=== PATIENT | female | born 1970 | race Caucasian/White ===

== ENCOUNTER 2019-08-23 17:28 | Inpatient (IN) ==
[2019-08-23] MEDS ORDERED: PIPERACILLIN/TAZOBACTAM 4.5 GM/120 ML BAG IV ONE (18:18)
[2019-08-23] MEDS ORDERED: PIPERACILL/TAZOBAC CONSULT ACTIVE PRN ×2 (18:18→21:40)
[2019-08-23] MEDS ORDERED: ONDANSETRON INJ 2 MG/ML 2 ML VIAL IV STA (18:20)
[2019-08-23] MEDS ORDERED: MoRPHine SULFATE 4 MG/ML 1 ML CARP\\VIAL IV STA (18:20)
[2019-08-23] MEDS ORDERED: SODIUM CHLORIDE 0.9% 1000ML 1,000 ML IV SCH (18:30)
--- NOTE | 2019-08-23 18:35 | Emergency Department Note ---
Entered by Kaylah Naranjo acting as a scribe for History of Present Illness General Chief complaint: Skin Problem Stated complaint: BOIL ON BUTT Time Seen by Provider: 08/23/19 17:50 Source: patient History of Present Illness Onset (ago): week(s) (several) Location: genitals (right labia) Radiation: other (towards rectum) Severity: similar to prior episodes Pain Consistency: + other (worsening) Maximum Pain Intensity: 9 Quality: + other (abscess) Associated symptoms: + other (positive itchiness; positive pain); no fever/chills and no nausea/vomiting The patient is a 49 year old female who presents to the Emergency Room with complaints of a worsening right labia abscess that began several weeks prior to arrival. The patient states that this radiates several centimeters inferiorly towards her rectum. The patient states that this has been itchy and painful. The patient states that this is similar to a prior episode. She denies nausea, vomiting, and fevers. The patient states that she has a history of diabetes and hypertension. Home Medications Home Medications Medication Instructions Recorded Confirmed Type atorvastatin 10 mg PO HS 08/23/19 08/23/19 History dulaglutide [Trulicity] 0.75 mg SUBCUT WK 08/23/19 08/23/19 History gabapentin 300 mg PO BID 08/23/19 08/23/19 History glipizide 10 mg PO DAILY 08/23/19 08/23/19 History insulin aspart U-100 [Novolog 8 unit SUBCUT TID 08/23/19 08/23/19 History U-100 Insulin aspart] insulin glargine [Basaglar KwikPen 24 unit SUBCUT HS 08/23/19 08/23/19 History U-100 Insulin] losartan 50 mg PO BID 08/23/19 08/23/19 History metformin 1,000 mg PO BID 08/23/19 08/23/19 History omeprazole 20 mg PO BID 08/23/19 08/23/19 History Allergies Allergy/AdvReac Type Severity Reaction Status Date / Time Iodinated Contrast Media Allergy Unknown . Verified 08/23/19 18:15 Past Med/Surg History Medical History Callus (Acute) Diabetes mellitus with diabetic polyneuropathy (Acute) Hallux rigidus, left foot (Acute) Hallux rigidus, right foot (Acute) Social History Preferred Language: Belarusian Feels Safe at Home: Yes Smoking Status: Current every day smoker Review of Systems See HPI for pertinent positives & negatives. and A total of 10 systems reviewed and were otherwise negative Physical Exam Vital Signs Vital Signs - 24 hr 08/23/19 17:32 08/23/19 19:28 Temperature 37.0 C Temperature Source Oral Pulse Rate 107 H Pulse Rate [Apical] 90 Pulse Rhythm Regular Pulse Rhythm [Apical] Regular Pulse Strength Normal Respiratory Rate 20 20 Respiratory Effort / Characteristics Non-Labored Non-Labored Spontaneous Respiratory Depth Normal Normal Respiratory Pattern Regular Regular Blood Pressure 164/111 H Blood Pressure [Right Arm] 154/88 H Blood Pressure Mean 128 Blood Pressure Mean [Right Arm] 110 Blood Pressure Position Sitting Blood Pressure Position [Right Arm] Lying Pulse Oximetry 98 96 Oxygen Delivery Method Room Air Room Air Sepsis Recent Fever Within 48 Hours No Sepsis Action Taken by Nursing No Action Required GENERAL: The patient is awake and alert. She is very anxious appearing and appears to be uncomfortable. EYES: The conjunctivae are clear. The pupils are round and reactive. EARS, NOSE, MOUTH AND THROAT: The nose is without any evidence of any deformity. Mucous membranes are moist. Tongue is midline. NECK: The neck is nontender and supple. RESPIRATORY: Normal respiratory effort is noted there is no evidence of wheezing rhonchi or rales CARDIOVASCULAR: Tachycardic rate with regular rhythm. There is no definite murmur. GASTROINTESTINAL: The abdomen is soft. Abdomen is nontender. MUSCULOSKELETAL/EXTREMITIES: There is no evidence of gross deformity full range of motion is noted in the hips and shoulders. SKIN: There is severe swelling on the right outer labia. This tracks down inferiorly into the lower part of the buttocks. It is very indurated. There was an open area with a small amount of drainage. There is significant tenderness in this area. NEUROLOGIC: Patient is awake alert and oriented x3. Course Course 181: Past medical records reviewed. The patient was evaluated in room A10. A complete history and physical exam was performed. 2007: I checked on and updated the patient. 2018: I discussed the case with Dr. [facility] Hospitalist who accepts the patient for further evaluation. Administered Medications Discontinued Medications Sodium Chloride (Nss 1000ml) 1,000 mls @ 999 mls/hr IV .Q1H1M LISANDRA Stop: 08/23/19 19:30 Last Infusion: 08/23/19 19:58 Dose: 0 mls/hr Documented by: [id number] Admin: 08/23/19 18:51 Dose: 999 mls/hr Documented by: [id number] Piperacillin Sod/Tazobactam Sod (Zosyn) 4.5 gm in 120 mls @ 240 mls/hr IV NOW ONE Stop: 08/23/19 18:47 Last Infusion: 08/23/19 19:58 Dose: 0 mls/hr Documented by: [id number] Admin: 08/23/19 18:52 Dose: 240 mls/hr Documented by: [id number] Morphine Sulfate (Morphine Sulfate) 4 mg IV NOW STA Stop: 08/23/19 18:21 Last Admin: 08/23/19 18:51 Dose: 4 mg Documented by: [id number] Ondansetron HCl (Zofran) 4 mg IV NOW STA Stop: 08/23/19 18:21 Last Admin: 08/23/19 18:51 Dose: 4 mg Documented by: [id number] Medical Decision Making Differential Diagnosis Differential diagnosis includes etiologies such as cellulitis, abscess, MRSA infection, DVT, necrotizing fasciitis, dermatitis, drug eruption, as well as others were entertained. Medical Records Attestation: I reviewed the patient's medical records. Home Medications Current Medication List: was personally reviewed by me Laboratory Data Attestation: I reviewed the patient's lab results. Result diagrams: 08/23/19 18:45 08/23/19 18:45 Lab Results 08/23/19 08/23/19 08/23/19 Range/Units 18:45 18:45 18:45 WBC 7.15 (4.8-10.8) K/uL RBC 4.31 (4.2-5.4) M/uL Hgb 8.6 L (12.0-16.0) g/dL Hct 30.1 L (37-47) % MCV 69.8 L (80-100) fL MCH 20.0 L (25-34) pg MCHC 28.6 L (32-36) g/dL RDW Std Deviation 46.5 H (36.4-46.3) fL RDW Coeff of King 18.5 H (11.5-14.5) % Plt Count 412 H (130-400) K/uL MPV 8.9 (7.4-10.4) fL Immature Gran % (Auto) 0.3 % Neut % (Auto) 57.6 % Lymph % (Auto) 29.5 % [place] % (Auto) 9.1 % Eos % (Auto) 3.1 % Baso % (Auto) 0.4 % Immature Gran # (Auto) 0.02 (0.00-0.02) K/uL Neut # (Auto) 4.12 (1.4-6.5) K/uL Lymph # (Auto) 2.11 (1.2-3.4) K/uL [place] # (Auto) 0.65 H (0.11-0.59) K/uL Eos # (Auto) 0.22 (0-0.5) K/uL Baso # (Auto) 0.03 (0-0.2) K/uL Polychromasia 1+ Microcytosis Present ESR > 90 H (0-21) mm/hr Sodium 136 (136-145) mmol/L Potassium 3.8 (3.5-5.1) mmol/L Chloride 102 (98-107) mmol/L Carbon Dioxide 26 (21-32) mmol/L Anion Gap 8.0 (3-11) BUN 11 (7-18) mg/dl Creatinine 0.74 (0.6-1.2) mg/dl Est Cr Clr Drug Dosing 116.2 ml/min Est GFR ( Amer) 111.0 Est GFR (Non-Af Amer) 95.8 BUN/Creatinine Ratio 14.3 (10-20) Glucose 292 H (70-99) mg/dl Calcium 9.4 (8.5-10.1) mg/dl Total Bilirubin 0.3 (0.2-1) mg/dl AST 14 L (15-37) U/L ALT 15 (12-78) U/L Alkaline Phosphatase 136 H (45-117) U/L C-Reactive Protein 2.44 H (0-0.29) mg/dl Total Protein 7.5 (6.4-8.2) gm/dl Albumin 3.0 L (3.4-5.0) gm/dl Globulin 4.5 H (2.5-4.0) gm/dl Albumin/Globulin Ratio 0.7 L (0.9-2) Procalcitonin (0-0.5) ng/ml HCG, Qual (Negative) 08/23/19 Range/Units 18:45 WBC (4.8-10.8) K/uL RBC (4.2-5.4) M/uL Hgb (12.0-16.0) g/dL Hct (37-47) % MCV (80-100) fL MCH (25-34) pg MCHC (32-36) g/dL RDW Std Deviation (36.4-46.3) fL RDW Coeff of King (11.5-14.5) % Plt Count (130-400) K/uL MPV (7.4-10.4) fL Immature Gran % (Auto) % Neut % (Auto) % Lymph % (Auto) % [place] % (Auto) % Eos % (Auto) % Baso % (Auto) % Immature Gran # (Auto) (0.00-0.02) K/uL Neut # (Auto) (1.4-6.5) K/uL Lymph # (Auto) (1.2-3.4) K/uL [place] # (Auto) (0.11-0.59) K/uL Eos # (Auto) (0-0.5) K/uL Baso # (Auto) (0-0.2) K/uL Polychromasia Microcytosis ESR (0-21) mm/hr Sodium (136-145) mmol/L Potassium (3.5-5.1) mmol/L Chloride (98-107) mmol/L Carbon Dioxide (21-32) mmol/L Anion Gap (3-11) BUN (7-18) mg/dl Creatinine (0.6-1.2) mg/dl Est Cr Clr Drug Dosing ml/min Est GFR ( Amer) Est GFR (Non-Af Amer) BUN/Creatinine Ratio (10-20) Glucose (70-99) mg/dl Calcium (8.5-10.1) mg/dl Total Bilirubin (0.2-1) mg/dl AST (15-37) U/L ALT (12-78) U/L Alkaline Phosphatase (45-117) U/L C-Reactive Protein (0-0.29) mg/dl Total Protein (6.4-8.2) gm/dl Albumin (3.4-5.0) gm/dl Globulin (2.5-4.0) gm/dl Albumin/Globulin Ratio (0.9-2) Procalcitonin 0.06 (0-0.5) ng/ml HCG, Qual Negative (Negative) Imaging Data Radiologist's Impression: Radiology results as stated below per my review and the radiologist's interpretation: CT pelvis wo con HISTORY: 49 years-old Female right labial swelling acute pain and swelling of the right labial tissues COMPARISON: Lumbar spine radiographs 05/26/2007 TECHNIQUE: Multiple axial CT images of the pelvis were obtained without the use of IV contrast A dose lowering technique was used consistent with the principals of RYNE. FINDINGS: Noninflamed appendix. Mild fecal retention. Mild colonic diverticulosis without acute diverticulitis. No bowel obstruction, ascites or mesenteric stranding. Iliac vessels appear unremarkable. Mild right inguinal adenopathy measures up to 1.5 x 1.3 cm. Prominent left inguinal chain lymph nodes are also present. The uterus is enlarged and appears heterogeneous with linear hyperdensities noted within the central uterus in the expected location of the endometrium it also within the anterior mid myometrial distribution possibly along a prior incision. Unremarkable urinary bladder. No myometrial mass lesions identified. Moderate subcutaneous edema of the right perineum with mild subcutaneous edema extending into the right labia majora medial inner thigh.. Within the right perineal tissues there is a partially fluid-filled tract extending anteriorly which measures approximately 6.1 cm in length on image 822 series 2. Minimal air distention of the maternal tissues and the proximal portion of this sinus tract. Ill-defined stranding/fluid of the deeper right peroneal tissues on image 843 series 2 measures 2.6 x 0.8 cm. No large drainable fluid collection. No large drainable abscess or fluid collection extending above the pelvic floor. Spondylitic spurring and facet arthrosis of the imaged lower lumbar spine with severe disc space narrowing and vacuum disc phenomenon at L5-S1. IMPRESSION: 1. No acute intrapelvic abnormality. 2. Subcutaneous edema of the right perineal tissues extending into the right labia majora and medial aspect of the right inner thigh suggests cellulitis. There is an associated 6.1 cm sinus tract within the right perineum with tiny foci of adjacent loculated fluid suggestive of developing abscesses. No drainable fluid collection. Trace amount of air noted within the proximal aspect of the sinus tract is likely secondary to direct extension from the skin surface with developing fasciitis considered less likely. Correlate with clinical exam findings. 3. Mild inguinal adenopathy, likely reactive. 4. Additional findings as above. ACT 112: Negative or not required by law. The above report was generated using voice recognition software. It may contain grammatical, syntax or spelling errors. Electronically signed by: Dionicio Gregory M.D. 08/23/2019 7:39 PM Blood Pressure Blood Pressure Findings: Elevated blood pressure Blood Pressure Disposition: further management by hospitalist MDM Narrative The patient is a 49-year-old female who has a history of diabetes who presented to emergency department for an evaluation of pain on her right outer labia. She is noticed swelling over the last few days. She noticed drainage and discharge. She has been putting heating pads to the area and using warm soaks. She does not have a fever. She was found to have anemia as well as elevated inflammatory markers. The patient was treated with IV fluids IV pain medication as well as IV antibiotics. I discussed the patient's laboratory and radiographic studies with her. At this time there was no fluid collection that would require incision and drainage. Given the patient's past medical history I do feel that she may require inpatient IV antibiotics to determine if the patient's condition was going to improve or worsen. Given the possibility of gangrene in this area I do feel she would require inpatient management. For this reason I discussed her case with the on-call [facility] hospitalist. They have agreed to evaluate the patient in the emergency department for further management and disposition. Impression & Plan Cellulitis of labia, Anemia Discharge Plan Visit Data Chief Complaint: Skin Problem Stated Complaint: BOIL ON BUTT ED Provider: Abdullahi Astudillo Discharge Problem: Cellulitis of labia, Anemia Patient Disposition: Being Evaluated by Hospitalist Forms Stand Alone Forms: [facility] [employer] Prescriptions Prescriptions: No Action losartan 50 mg tablet 50 mg PO BID RF: 0 atorvastatin 10 mg tablet 10 mg PO HS RF: 0 glipizide 10 mg tablet 10 mg PO DAILY RF: 0 insulin aspart U-100 [Novolog U-100 Insulin aspart] 100 unit/mL solution 8 unit subcut TID RF: 0 metformin 1,000 mg tablet 1,000 mg PO BID RF: 0 gabapentin 300 mg capsule 300 mg PO BID RF: 0 omeprazole 20 mg capsule,delayed release(DR/EC) 20 mg PO BID RF: 0 Basaglar KwikPen U-100 Insulin 100 unit/mL (3 mL) insulin pen 24 unit SUBCUT HS RF: 0 Trulicity 0.75 mg/0.5 mL pen injector 0.75 mg SUBCUT WK RF: 0 Referrals Referrals: Abdi Hickey MD [Primary Care Provider] - Discharge Problem: Anemia Qualifiers: Anemia type: unspecified type Qualified Code(s): D64.9 - Anemia, unspecified The scribe's documentation has been prepared under my direction and personally reviewed by me in its entirety. I confirm that the note above accurately reflects all work, treatment, procedures, and medical decision making performed by me.
[2019-08-23 19:14] LABS: Hematocrit (blood only) 30.1 % (37-47); Hemoglobin 8.6 g/dL (12.0-16.0); Mean Corpuscular Hgb Conc 28.6 g/dL (32-36); Mean Corpuscular Volume 69.8 fL (80-100); Mean Platelet Volume 8.9 fL (7.4-10.4); Platelet Count 412 K/uL (130-400); RDW Coefficient of Variation 18.5 % (11.5-14.5); RDW Standard Deviation 46.5 fL (36.4-46.3); Red Blood Count 4.31 M/uL (4.2-5.4); White Blood Count 7.15 K/uL (4.8-10.8)
[2019-08-23 19:25] LABS: BUN Creatinine Ratio 14.3 (10-20); C Reactive Protein 2.44 mg/dl (0-0.29); Calcium 9.4 mg/dl (8.5-10.1); Creatinine Clr Calc Pharmacy 116.2 ml/min; Est GFR (Non-African American) 95.8; Potassium 3.8 mmol/L (3.5-5.1)
[2019-08-23 19:27] LABS: Albumin Globulin Ratio 0.7 (0.9-2); Bilirubin,Total 0.3 mg/dl (0.2-1); Globulin 4.5 gm/dl (2.5-4.0); Total Protein 7.5 gm/dl (6.4-8.2)
[2019-08-23 19:29] LABS: Pregnancy Test, Serum Negative (Negative)
--- NOTE | 2019-08-23 19:40 | CT Scan Report ---
CT pelvis wo con HISTORY: 49 years-old Female right labial swelling acute pain and swelling of the right labial tissu es COMPARISON: Lumbar spine radiographs 05/26/2007 TECHNIQUE: Multiple axial CT images of the pelvis were obtained without the use of IV contrast A dose lowering technique was used consistent with the principals of RYNE. FINDINGS: Noninflamed appendix. Mild fecal retention. Mild colonic diverticulosis without acute diverticulitis. No bowel obstruction, ascites or mesenteric stranding. Iliac vessels appear unremarkable. Mild right inguinal adenopathy measures up to 1.5 x 1.3 cm. Prominent left inguinal chain lymph nodes are also present. The uterus is enlarged and appears heterogeneous with linear hyperdensities noted within the central uterus in the expected location of the endometrium it also within the anterior mid myometria l distribution possibly along a prior incision. Unremarkable urinary bladder. No myometrial mass lesi ons identified. Moderate subcutaneous edema of the right perineum with mild subcutaneous edema extending into the rig ht labia majora medial inner thigh.. Within the right perineal tissues there is a partially fluid-aubrey led tract extending anteriorly which measures approximately 6.1 cm in length on image 822 series 2. M inimal air distention of the maternal tissues and the proximal portion of this sinus tract. Ill-defin ed stranding/fluid of the deeper right peroneal tissues on image 843 series 2 measures 2.6 x 0.8 cm. No large drainable fluid collection. No large drainable abscess or fluid collection extending above t he pelvic floor. Spondylitic spurring and facet arthrosis of the imaged lower lumbar spine with severe disc space narr owing and vacuum disc phenomenon at L5-S1. IMPRESSION: 1. No acute intrapelvic abnormality. 2. Subcutaneous edema of the right perineal tissues extending into the right labia majora and medial aspect of the right inner thigh suggests cellulitis. There is an associated 6.1 cm sinus tract within the right perineum with tiny foci of adjacent loculated fluid suggestive of developing abscesses. No drainable fluid collection. Trace amount of air noted within the proximal aspect of the sinus tract is likely secondary to direct extension from the skin surface with developing fasciitis considered le ss likely. Correlate with clinical exam findings. 3. Mild inguinal adenopathy, likely reactive. 4. Additional findings as above. ACT 112: Negative or not required by law. The above report was generated using voice recognition software. It may contain grammatical, syntax o r spelling errors. Electronically signed by: Dionicio Gregory M.D. 08/23/2019 7:39 PM
[2019-08-23 19:41] LABS: Basophils # (auto) 0.03 K/uL (0-0.2); Basophils % (auto) 0.4 %; Eosinophils # (auto) 0.22 K/uL (0-0.5); Eosinophils % (auto) 3.1 %; Immature Granulocytes # (auto) 0.02 K/uL (0.00-0.02); Immature Granulocytes % (auto) 0.3 %; Lymphocytes # (auto) 2.11 K/uL (1.2-3.4); Lymphocytes % (auto) 29.5 %; Microcytosis Present; Monocytes # (auto) 0.65 K/uL (0.11-0.59); Monocytes % (auto) 9.1 %; Neutrophils # (auto) 4.12 K/uL (1.4-6.5); Neutrophils % (auto) 57.6 %; Polychromasia 1+
[2019-08-23 19:49] LABS: Procalcitonin 0.06 ng/ml (0-0.5)
[2019-08-23] MEDS ORDERED: VANCOMYCIN CONSULT ACTIVE PRN (21:40)
[2019-08-23] MEDS ORDERED: VANCOMYCIN HCL 1,000 MG in SODIUM CHLORIDE 0.9% 250 ML IV SCH (21:45)
[2019-08-23] MEDS ORDERED: PIPERACILLIN/TAZOBACTAM 3.375 GM in DEXTROSE 5% 100 ML IV SCH (21:45)
[2019-08-23] MEDS ORDERED: INSULIN GLARGINE SOLOSTAR 100 UNITS/ML 3 ML PEN SQ SCH (22:00)
--- NOTE | 2019-08-23 22:16 | History & Physical Report ---
Date of Service August 23, 2019 Assessment & Plan (1) Cellulitis of labia: Mindi Gaming is a pleasant 49 y/o female with past history of uncontrolled DM, HTN, who was admitted for labia majora and perineum cellulitis. CT Pelvis w/o con - showing subcutaneous edema of right perineal tissues extending into the right labia majora and medial aspect of the right inner thigh suggesting cellulitis. ED contacted COMPUTER SYSTEMS SECURITY ANALYST who reviewed and thought that there was no abscess to drain and this could be treated with antibiotics. Concern that it was reported that there was a 6.1cm sinus tract within the right perineum. Report does note that there is only a tiny foci of adjacent loculated fluid suggestive of developing abscess and no drainable fluid collection. Since there was mention of a sinus tract, General surgery was contacted and noted that there didn't appear to be any fluid to drain as well. But if not clinically improving with antibiotics that would need to be transferred to tertiary care center for concerns related to Fourier's gangrene. It was noted on radiologist report that there was a trace amount of air noted within the proximal aspect of the sinus tract that is likely from direct extension from the skin surface. It was reported that developing fasciitis was considered less likely. - Patient was started on Zosyn here in ED, will continue Zosyn and add Vancomycin for more specific gram+ and MRSA coverage. - will make patient NPO after midnight, incase clinically in the morning there is consideration for surgical intervention. - Morphine 2mg q4hr PNR for pain. - Currently no fevers, or systemic symptoms, no elevated WBC. - IVF @ 125 when NPO starting at midnight. - Wound cultures taken in ED - ESR >90; CRP 2.44 Code: Full Code FENGI: DM2 diet, NPO at midnight, NSS @ 125mL, continue with Omeprazole 20mg PO BID DVT ppx: SCDs, will avoid chemical with Hgb of 8.6 while worked up. Dispo: Med surg (2) Anemia: - Unknown what prior baseline is, but notes was told anemic when tried to donate blood long time ago - In ED, Hgb is 8.6, MCV is low along with MCHC which would be consistent with iron deficiency anemia. - Will work up with AM Iron study labs. - Trend with CBC (3) Diabetes type 2, uncontrolled: - Prior A1C 3-weeks ago was 12.2%; 7-months ago was 10.8%; 10-months ago was 12%. - Continue with Basaglar 24 units SubQ qHS - Novolog sliding scale - continue with home Metformin 100mg PO BID - She notes she no longer takes Glipizide 10mg and inplace started Trulicity on last Saturday, would be due for this upcoming Saturday with order placed. - continue with home Gabapentin 300mg BID for her neuropathy - c/w Atorvastatin 10mg PO qHS (4) HTN (hypertension): -Continue with home Losartan 50mg PO BID - Monitor vitals (5) Tobacco abuse: - Patient declining need for Nicotine TD patch - Smoking cessation provided, notes she only smokes at work - Diminished lung sounds on exam concerning for lung damage from smoking History of Present Illness Chief Complaint: Cellulitis Primary Care Provider: Abdi Hickey MD Mindi Gaming is a 49 y/o female who presented to [facility] ED for CC of Right labial pain. She notes onset of a pimple to right labia majora about one week ago. She notes that she was treating the area with epsom salt baths in hopes that area would resolve. However, it did not resolve and today she noted that area of redness started to extend to the perineum. She was alarmed that since it was progressing toward her rectum that she should come here to get evaluated. She notes area is causing discomfort that is worse with sitting. She has also been using a heating pad on the area. She notes that she has had similar episodes in the past but none that required hospitalization. She denies any fever, chills, nausea, vomiting. She does not a history of DM treated with oral and insulin. She did not take her basal insulin tonight yet. She also notes that she had her glipizide discontinued in place for Trulicity which she started last Saturday. She notes a history of uncontrolled diabetes. She had a A1C 3 weeks ago as outpatient that was 12.2%. She denies a prior history of MRSA. She also notes a history of anemia, but only because she was told a long time ago "that I couldn't give blood anymore, because my numbers were really really low." She doesn't know what her baseline is or what any cause of her anemia is. She endorses being a smoker with smoking less than a pack per day. She is . Urine preg was negative here in ED. Allergies Allergy/AdvReac Type Severity Reaction Status Date / Time Iodinated Contrast Media Allergy Unknown . Verified 08/23/19 18:15 Home Medications Home Medications Medication Instructions Recorded Confirmed Type atorvastatin 10 mg PO HS 08/23/19 08/23/19 History dulaglutide [Trulicity] 0.75 mg SUBCUT WK 08/23/19 08/23/19 History gabapentin 300 mg PO BID 08/23/19 08/23/19 History glipizide 10 mg PO DAILY 08/23/19 08/23/19 History insulin aspart U-100 [Novolog 8 unit SUBCUT TID 08/23/19 08/23/19 History U-100 Insulin aspart] insulin glargine [Basaglar KwikPen 24 unit SUBCUT HS 08/23/19 08/23/19 History U-100 Insulin] losartan 50 mg PO BID 08/23/19 08/23/19 History metformin 1,000 mg PO BID 08/23/19 08/23/19 History omeprazole 20 mg PO BID 08/23/19 08/23/19 History Past Med/Surg History Medical History Callus (Acute) Diabetes mellitus with diabetic polyneuropathy (Acute) Hallux rigidus, left foot (Acute) Hallux rigidus, right foot (Acute) Social History Preferred Language: Uzbek Communication Ability: Effective Confectionery Cooker Required: No Beliefs That Will Affect Care: None Current Living Situation: Spouse Other Information That Helps Us Care for You: No Feels Safe at Home: Yes Safety Concerns: Feels Safe At This Time Smoking Status: Current every day smoker Tobacco Type: cigarettes ; Do You Dip or Chew Tobacco: No ; Second Hand Exposure: No ; Tobacco Cessation Education Requested by Patient: No Hx Alcohol Use: No Hx Substance Use: No Review of Systems Review of Systems: All systems reviewed & are unremarkable except as noted in HPI & below Constitutional: no fever, no chills and no body aches Eyes: no diplopia and no worsening vision Ear, Nose, Mouth, Throat: no nasal congestion and no sore throat Respiratory: no cough and no dyspnea Cardiovascular: no chest pain and no edema Gastrointestinal: no abdominal pain, no nausea and no vomiting Genitourinary: no dysuria and no difficulty urinating Musculoskeletal: no back pain and no neck pain Integumentary: + erythema Neurologic: no generalized weakness and no headache(s) Physical Exam Constitutional: WD/WN, vitals as above cooperative and comfortable Eyes: PERRL, conjunctivae normal, anicteric sclerae ENMT: external ear and nose normal, oropharynx normal Neck: normal visual inspection and trachea midline Respiratory: normal respiratory effort; no respiratory distress Auscultation: no crackles, no rhonchi and no wheezes diminished breath sounds diffusely posteriorly Cardiovascular: Rate/Rhythm: regular rate and regular rhythm Extremities: no edema Gastrointestinal (Abdomen): Inspection/Auscultation: normal bowel sounds Percussion/Palpation: abdomen nontender, no guarding and abdomen not rigid Musculoskeletal: Head/Neck/Chest: normocephalic and head atraumatic Skin: increased swelling of the right labia with erythema that descends to perinuem with induration. Area is moderately tender with open area without active drainage at this time. Right inguinal LAD. Neurologic: moves all extremities Psychiatric: A+Ox3, euthymic affect Results & Data Vital Signs (Past 12 Hours) Vital Signs Temp Pulse Pulse Resp BP BP Pulse Ox 08/23/19 19:28 90 20 154/88 H 96 08/23/19 17:32 37.0 C 107 H 20 164/111 H 98 Laboratory Results Laboratory Results - last 24 hr 08/23/19 08/23/19 08/23/19 18:45 18:45 18:45 WBC 7.15 RBC 4.31 Hgb 8.6 L Hct 30.1 L MCV 69.8 L MCH 20.0 L MCHC 28.6 L RDW Std Deviation 46.5 H RDW Coeff of King 18.5 H Plt Count 412 H MPV 8.9 Immature Gran % (Auto) 0.3 Neut % (Auto) 57.6 Lymph % (Auto) 29.5 Dukes % (Auto) 9.1 Eos % (Auto) 3.1 Baso % (Auto) 0.4 Immature Gran # (Auto) 0.02 Neut # (Auto) 4.12 Lymph # (Auto) 2.11 Dukes # (Auto) 0.65 H Eos # (Auto) 0.22 Baso # (Auto) 0.03 Polychromasia 1+ Microcytosis Present ESR > 90 H Sodium 136 Potassium 3.8 Chloride 102 Carbon Dioxide 26 Anion Gap 8.0 BUN 11 Creatinine 0.74 Est Cr Clr Drug Dosing 116.2 Est GFR ( Amer) 111.0 Est GFR (Non-Af Amer) 95.8 BUN/Creatinine Ratio 14.3 Glucose 292 H Calcium 9.4 Total Bilirubin 0.3 AST 14 L ALT 15 Alkaline Phosphatase 136 H C-Reactive Protein 2.44 H Total Protein 7.5 Albumin 3.0 L Globulin 4.5 H Albumin/Globulin Ratio 0.7 L Procalcitonin HCG, Qual Urine Color Urine Appearance Urine pH Ur Specific [place] Urine Protein Urine Glucose (UA) Urine Ketones Urine Blood Urine Nitrite Urine Bilirubin Urine Urobilinogen Ur Leukocyte Esterase 08/23/19 08/23/19 18:45 20:20 WBC RBC Hgb Hct MCV MCH MCHC RDW Std Deviation RDW Coeff of King Plt Count MPV Immature Gran % (Auto) Neut % (Auto) Lymph % (Auto) Dukes % (Auto) Eos % (Auto) Baso % (Auto) Immature Gran # (Auto) Neut # (Auto) Lymph # (Auto) Dukes # (Auto) Eos # (Auto) Baso # (Auto) Polychromasia Microcytosis ESR Sodium Potassium Chloride Carbon Dioxide Anion Gap BUN Creatinine Est Cr Clr Drug Dosing Est GFR ( Amer) Est GFR (Non-Af Amer) BUN/Creatinine Ratio Glucose Calcium Total Bilirubin AST ALT Alkaline Phosphatase C-Reactive Protein Total Protein Albumin Globulin Albumin/Globulin Ratio Procalcitonin 0.06 HCG, Qual Negative Urine Color Pending Urine Appearance Pending Urine pH Pending Ur Specific [place] Pending Urine Protein Pending Urine Glucose (UA) Pending Urine Ketones Pending Urine Blood Pending Urine Nitrite Pending Urine Bilirubin Pending Urine Urobilinogen Pending Ur Leukocyte Esterase Pending Diagnostic Findings CT Pelvis WO con IMPRESSION: 1. No acute intrapelvic abnormality. 2. Subcutaneous edema of the right perineal tissues extending into the right labia majora and medial aspect of the right inner thigh suggests cellulitis. There is an associated 6.1 cm sinus tract within the right perineum with tiny foci of adjacent loculated fluid suggestive of developing abscesses. No drainable fluid collection. Trace amount of air noted within the proximal aspect of the sinus tract is likely secondary to direct extension from the skin surface with developing fasciitis considered less likely. Correlate with clinical exam findings. 3. Mild inguinal adenopathy, likely reactive. Code Status & VTE Plan VTE Prophylaxis Plan VTE Prophylaxis will be ordered: Yes Supervising Physician Co-Signing Physician Notes Attending addendum: I have physically seen this patient, have supervised the medical residents activities, and agree with the H&P unless as otherwise noted. Assessment and Plan: Cellulitis of right labia/6.1 cm sinus tract right perineum/possible early micro abscesses developing- Case discussed with general surgery and EQUIPMENT SERVICE ENGINEER, who felt no surgical procedure is needed at this time. Was given Zosyn 4.5 g IV in the ED. Continue Zosyn 4.5 g IV every 8 hours and add vancomycin IV per pharmacokinetic monitoring. N.p.o. after midnight follow blood cultures. Follow wound cultures IV fluids Remaining orders and notations as noted. Resident Activity Tracking Resident Involvement: Resident Care Provided Care Provided: Adult Hospital Medicine (1) Anemia Anemia type: unspecified type Qualified Code(s): D64.9 - Anemia, unspecified
[2019-08-23] MEDS ORDERED: GLUCAGON FOR INJ 1 MG VIAL SQ PRN (22:31)
[2019-08-23] MEDS ORDERED: GLUCOSE 10 TABS/TUBE PO PRN (22:31)
[2019-08-23] MEDS ORDERED: CARBOHYDRATES FOR HYPOGLYCEMIA PO PRN (22:31)
[2019-08-23] MEDS ORDERED: DEXTROSE 50% 50 ML SYRINGE IV PRN (22:31)
[2019-08-23] MEDS ORDERED: MAGNESIUM HYDROXIDE SUSP 30 ML UDC PO PRN (22:31)
[2019-08-23] MEDS ORDERED: ALUMINUM/MAGNESIUM SUSP 30 ML UDC PO PRN (22:31)
[2019-08-23] MEDS ORDERED: POLYETHYLENE (MIRALAX) 17 GM PACK PO PRN (22:31)
[2019-08-23] MEDS ORDERED: GLUCOSE 40% GEL 15 GM TUBE PO PRN (22:31)
[2019-08-23 22:52] LABS: Appearance Urine Clear (Clear); Bacteria Urine Automated Negative (Negative); Bilirubin Urine Negative (Negative); Blood Urine 1+ (Negative); Cast Urine Automated 0 /lpf (0-5); Color Urine Yellow; Glucose Urine UA 3+ (Negative); Ketones Urine Trace (Negative); Leukocyte Esterase Urine Negative (Negative); Nitrite Urine Negative (Negative); Protein Urine Trace (Negative); RBC Urine Automated 0-4 /hpf (0-4); Urobilinogen Urine Negative (Negative); pH Urine 5.5 (4.5-7.5)
[2019-08-23] MEDS ORDERED: INSULIN ASPART 100 UNITS/ML 3 ML PEN SC ONE (23:45)
[2019-08-23] MEDS ORDERED: INSULIN HUMAN REGULAR PER UNIT 7 UNITS in SYRINGE 6.93 ML IV ONE (23:45)
[2019-08-24] MEDS ORDERED: VANCOMYCIN HCL 2,750 MG in SODIUM CHLORIDE 0.9% 500 ML IV SCH
[2019-08-24] MEDS: PIPERACILLIN/TAZOBACTAM 4.5 GM in DEXTROSE 5% 100 ML IV SCH ×3 (00:10→16:49)
[2019-08-24] MEDS ORDERED: PHARMACY GLYCEMIC MGMT CONSULT PRN (00:16)
[2019-08-24] MEDS: MoRPHine SULFATE 2 MG/ML CARP IV PRN ×3 (00:25→21:50)
[2019-08-24] MEDS: ACETAMINOPHEN 325 MG TAB PO PRN ×3 (00:26→17:57)
[2019-08-24] MEDS: INSULIN ASPART 100 UNITS/ML 3 ML PEN SC SCH ×4 (02:16→21:39)
--- NOTE | 2019-08-24 04:21 | Billing Data ---
Date of Service August 24, 2019 Coding Level of Care Code 92826 Initial Inpt Care Lvl 2
[2019-08-24 05:49] LABS: Hematocrit (blood only) 27.3 % (37-47); Hemoglobin 7.7 g/dL (12.0-16.0); Mean Corpuscular Hemoglobin 19.9 pg (25-34); Mean Corpuscular Hgb Conc 28.2 g/dL (32-36); Mean Corpuscular Volume 70.5 fL (80-100); Mean Platelet Volume 8.6 fL (7.4-10.4); Platelet Count 330 K/uL (130-400); RDW Coefficient of Variation 18.8 % (11.5-14.5); RDW Standard Deviation 47.9 fL (36.4-46.3); Red Blood Count 3.87 M/uL (4.2-5.4); White Blood Count 5.74 K/uL (4.8-10.8)
[2019-08-24 06:11] LABS: Basophils # (auto) 0.02 K/uL (0-0.2); Basophils % (auto) 0.3 %; Eosinophils # (auto) 0.29 K/uL (0-0.5); Eosinophils % (auto) 5.1 %; Immature Granulocytes # (auto) 0.03 K/uL (0.00-0.02); Immature Granulocytes % (auto) 0.5 %; Lymphocytes # (auto) 1.92 K/uL (1.2-3.4); Lymphocytes % (auto) 33.4 %; Monocytes # (auto) 0.49 K/uL (0.11-0.59); Monocytes % (auto) 8.5 %; Neutrophils # (auto) 2.99 K/uL (1.4-6.5); Neutrophils % (auto) 52.2 %; Polychromasia 1+; Reticulocyte % 2.5 % (0.5-2.0)
[2019-08-24 06:26] LABS: Albumin Level 2.5 gm/dl (3.4-5.0); BUN Creatinine Ratio 17.3 (10-20); Calcium 8.3 mg/dl (8.5-10.1); Creatinine Clr Calc Pharmacy 127.7 ml/min; Est GFR (African American) 120.5; Est GFR (Non-African American) 103.9; Potassium 3.6 mmol/L (3.5-5.1)
[2019-08-24 06:35] LABS: Albumin Globulin Ratio 0.6 (0.9-2); Bilirubin,Total 0.2 mg/dl (0.2-1); Ferritin 5.9 ng/ml (8-388); Thyroid Stimulating Hormone 2.66 uIu/ml (0.300-4.500); Total Protein 6.5 gm/dl (6.4-8.2)
[2019-08-24] MEDS ORDERED: INSULIN ASPART 100 UNITS/ML 3 ML PEN SC SCH ×2 (07:30→11:00)
[2019-08-24] MEDS: SODIUM CHLORIDE 0.9% 1000ML 1,000 ML IV SCH ×4 (07:53→23:38)
[2019-08-24] MEDS: ONDANSETRON INJ 2 MG/ML 2 ML VIAL IV PRN (08:35)
[2019-08-24] MEDS: PANTOprazole 40 MG TAB PO SCH ×2 (08:37→21:39)
[2019-08-24] MEDS: LOSARTAN POTASSIUM 50 MG TAB PO SCH ×2 (08:38→21:39)
[2019-08-24] MEDS: GABAPENTIN 300 MG CAP PO SCH ×2 (08:38→21:38)
[2019-08-24] MEDS ORDERED: METFORMIN HCL 500 MG TAB PO SCH (09:00)
--- NOTE | 2019-08-24 09:55 | Surgery Consultation ---
Date of Consultation August 24, 2019 Assessment & Plan (1) Cellulitis of labia: This is a 49y F with a PMH of DM2, tobacco abuse, and anemia who presents with swelling and pain around her right perineal region. Patient reports multiple similar episodes of this in the past, mostly managed conservatively by herself. Since the area of concern was extending towards her rectum she came in for evaluation. Per nurse she was able to express some sloughy tissue from opening today that was likely plugging the opening, and now site is draining more. Patient's WBC is 5.7 today and she is afebrile. CT scan shows concern for a sinus tract within the R perineum concerning for developing abscess, but does not show a drainable collection at this time. The site appears open and with some drainage on her ABD pad. For now continue course of IV abx and local wound care. I will discuss case with Dr. Meredith who will see patient today. Supervising Physician Co-Signing Physician Notes Patient seen and examined, labs and imaging reviewed, agree with above. 49-year-old female with poorly controlled diabetes and smoking history presents with perineal kris-labial cellulitis. She reports a history of this in the past and usually resolves with warm water soaks. She has had a few I&D's in the past. This time it did not drain on its own and the pain became increasing so she came to the emergency department. She had a CT scan which showed no drainable fluid collection but subcutaneous sinus tract between the thigh and perineum. On exam there is some induration with a freely draining opening in the medial right proximal thigh. She has several other scars and cystic type lesions. This appears to be related to hidradenitis, and as there is no drainable fluid collection there is no surgical intervention indicated at this time. We will continue to treat with IV antibiotics until her white count normalizes and her infection is resolving. She can then transition to oral antibiotics. She should benefit from outpatient evaluation by dermatology. She also should stop smoking and take better care of her blood sugars. History of Present Illness Attending Physician: Wayne Arambula History of Present Illness This is a 49y F with a PMH of diabetes, tobacco use, and anemia who presents to the [facility] ED on 08/23/19 with complaints of right labial pain. Patient reports she noticed about 1 wk ago the area started out as a small pimple, the area recently got bigger and she tried Epsom salt baths without much relief. She noticed that the area started extending towards her rectum which concerned her, prompting her to come to the ED for further evaluation. In the ED patient's WBC 7.[address] revealed subcutaneous edema of the right perineal tissues extending into the right labia majora and medial aspect of the right inner thigh suggests cellulitis. There is an associated 6.1 cm sinus tract within the right perineum with tiny foci of adjacent loculated fluid suggestive of developing abscesses, without drainable fluid collection. The patient reports dealing with multiple similar episodes of this in the past, last one about 2 wks ago. She reports managing them herself conservatively at home without abx, with the exception of one that was I&D about 15 years ago. She reports that the site started draining spontaneously about 3-4 days ago, with more moderate drainage today. She denies any fevers/chill, diarrhea/constipation, or urinary symptoms. Allergies Allergy/AdvReac Type Severity Reaction Status Date / Time Iodinated Contrast Media Allergy Unknown . Verified 08/23/19 18:15 Home Medications Home Medications Medication Instructions Recorded Confirmed Type atorvastatin 10 mg PO HS 08/23/19 08/23/19 History dulaglutide [Trulicity] 0.75 mg SUBCUT WK 08/23/19 08/23/19 History gabapentin 300 mg PO BID 08/23/19 08/23/19 History glipizide 10 mg PO DAILY 08/23/19 08/23/19 History insulin aspart U-100 [Novolog 8 unit SUBCUT TID 08/23/19 08/23/19 History U-100 Insulin aspart] insulin glargine [Basaglar KwikPen 24 unit SUBCUT HS 08/23/19 08/23/19 History U-100 Insulin] losartan 50 mg PO BID 08/23/19 08/23/19 History metformin 1,000 mg PO BID 08/23/19 08/23/19 History omeprazole 20 mg PO BID 08/23/19 08/23/19 History Patient History Medical History Callus (Acute) Diabetes mellitus with diabetic polyneuropathy (Acute) Hallux rigidus, left foot (Acute) Hallux rigidus, right foot (Acute) Social History Preferred Language: Slovenian Communication Ability: Effective Route Sales Person Required: No Beliefs That Will Affect Care: None Current Living Situation: Spouse Other Information That Helps Us Care for You: No Feels Safe at Home: Yes Safety Concerns: Feels Safe At This Time Smoking Status: Current every day smoker Tobacco Type: cigarettes ; Do You Dip or Chew Tobacco: No ; Second Hand Exposure: No ; Tobacco Cessation Education Requested by Patient: No Hx Alcohol Use: No Hx Substance Use: No Review of Systems Constitutional: no fever and no chills Genitourinary: no urinary complaints Integumentary: tenderness around R labia and buttocks region, + draining Physical Exam Physical Exam: awake/alert Constitutional: well developed and well nourished; no acute distress Respiratory: normal respiratory effort Skin: + induration of lower right labia majora extending towards perineal reg ion and buttock. ~1cm opening with + drainage on ABD. mild erythema. Tenderness to palpation kris-indurated tissue. Results & Data Vital Signs (Past 12 Hours) Vital Signs Temp Pulse Resp BP Pulse Ox 08/24/19 07:12 36.3 C L 80 16 122/76 93 08/23/19 23:10 37.1 C 89 16 127/80 94 08/23/19 22:26 36.8 C 99 H 18 141/[address] pelvis wo con HISTORY: 49 years-old Female right labial swelling acute pain and swelling of the right labial tissues COMPARISON: Lumbar spine radiographs 05/26/2007 TECHNIQUE: Multiple axial CT images of the pelvis were obtained without the use of IV contrast A dose lowering technique was used consistent with the principals of [facility]. FINDINGS: Noninflamed appendix. Mild fecal retention. Mild colonic diverticulosis without acute diverticulitis. No bowel obstruction, ascites or mesenteric stranding. Iliac vessels appear unremarkable. Mild right inguinal adenopathy measures up to 1.5 x 1.3 cm. Prominent left inguinal chain lymph nodes are also present. The uterus is enlarged and appears heterogeneous with linear hyperdensities noted within the central uterus in the expected location of the endometrium it also within the anterior mid myometrial distribution possibly along a prior incision. Unremarkable urinary bladder. No myometrial mass lesions identified. Moderate subcutaneous edema of the right perineum with mild subcutaneous edema extending into the right labia majora medial inner thigh.. Within the right perineal tissues there is a partially fluid-filled tract extending anteriorly which measures approximately 6.1 cm in length on image 822 series 2. Minimal air distention of the maternal tissues and the proximal portion of this sinus tract. Ill-defined stranding/fluid of the deeper right peroneal tissues on image 843 series 2 measures 2.6 x 0.8 cm. No large drainable fluid collection. No large drainable abscess or fluid collection extending above the pelvic floor. Spondylitic spurring and facet arthrosis of the imaged lower lumbar spine with severe disc space narrowing and vacuum disc phenomenon at L5-S1. IMPRESSION: 1. No acute intrapelvic abnormality. 2. Subcutaneous edema of the right perineal tissues extending into the right labia majora and medial aspect of the right inner thigh suggests cellulitis. There is an associated 6.1 cm sinus tract within the right perineum with tiny foci of adjacent loculated fluid suggestive of developing abscesses. No drainable fluid collection. Trace amount of air noted within the proximal aspect of the sinus tract is likely secondary to direct extension from the skin surface with developing fasciitis considered less likely. Correlate with clinical exam findings. 3. Mild inguinal adenopathy, likely reactive. 4. Additional findings as above. ACT 112: Negative or not required by law. The above report was generated using voice recognition software. It may contain grammatical, syntax or spelling errors. Electronically signed by: Dionicio Gregory M.D. 08/23/2019 7:39 PM PG Care Time/CCT Total # of Minutes Spent Total Time Spent with Patient: Total time spent is greater than 50% in coordination of care (as documented) at patient's floor/unit and/or counseling patient: Coding Level of Care Code 54017 Inpt Consult Level 3 Diagnoses Cellulitis of labia N76.2
[2019-08-24] MEDS ORDERED: VANCOMYCIN HCL 1,500 MG in SODIUM CHLORIDE 0.9% 500 ML IV STA (10:19)
--- NOTE | 2019-08-24 10:33 | Pharmacy Report ---
Glycemic Control Consultation - Date of Service August 24, 2019 - Scope Scope: Glycemic Pharmacist consulted for glycemic control and to write orders per [facility] inpatient glycemic control protocol - Objective Weight: 111.4 kg Accuchecks BSG (last 24hrs): 08/23/19 08/23/19 08/24/19 18:45 23:14 02:02 Glucose 292 H POC Glucose 344 H* 336 H* 08/24/19 08/24/19 05:20 05:42 Glucose 222 H POC Glucose 256 H Laboratory Data (last 24hrs): 08/23/19 08/24/19 18:45 05:20 Potassium 3.8 3.6 Carbon Dioxide 26 28 Anion Gap 8.0 5.0 Creatinine 0.74 0.67 Est Cr Clr Drug Dosing 116.2 127.7 - Recent Pertinent Medications Outpatient Anti-diabetic Regimen: * Basaglar 24 units SC HS * Novolog 8 units SC TID * Metformin 1 g po BID * Trulicity 0.75 mg SC qWedn (recent start last Saturday per H&P) * Note: recently discontinued glipizide per H&P * A1c = 12.2% three weeks ago per H&P The patient is currently receiving: * Basal insulin: Lantus 24 units SC x1 08/23 PM * Correctional Insulin: Novolog Correction per scale q6 Goal Range: Low 120 mg/dL - High 160 mg/dL Correction Factor: 25 mg/dL/unit * Prandial insulin: Per carb ratio of 1 unit per 7 grams CHO consumed * Oral Agents: On hold Risk Factors for Insulin Resistance: * Infection: perineal/labial cellulitis, r/o Charito's gangrene * Recent Surgery: Dr. Meredith to evaluate later today * Diet: NPO this AM, now T2DM - Assessment & Plan Assessment & Plan: ASSESSMENT: * 49 yo F with poorly controlled T2DM as outpatient per reported HbA1c admitted with perineal/labial cellulitis with possible need for surgical intervention * BSG's thus far severely elevated * Will increase frequency of BSG checks and tighten Novolog parameters to weight-based moderate stress estimate * Will give additional Lantus x1 now, totaling ~0.4 units/kg including yesterday's dose. Lantus scale per BSG tonight PLAN FOR INPATIENT GLYCEMIC CONTROL: * Holding outpatient oral diabetes medications * Basal insulin - Lantus 15 units SC x1 now then HS x1 depending on BSG * 10 units for BSG less than 120 mg/dL * 20 units for BSG 120-160 mg/dL * 30 units for BSG greater than 160 mg/dL * Bolus insulin * Increase NovoLog checks to ACHS + 0000,0400 * Goal Range: Low 120 mg/dL - High 150 mg/dL * Tighten Correction Factor: 20 mg/dL/unit * Nutritional / Prandial insulin per carb ratio of 1 unit per 7 grams CHO consumed * Please note that the plan above was derived based on current level of insulin resistance and hospital stress. These recommendations are appropriate for inpatient admission only. Plan of care upon discharge will need to be reassessed to avoid potential outpatient hypo/hyperglycemia. Thank you.
[2019-08-24] MEDS ORDERED: VANCOMYCIN HCL 1,250 MG in SODIUM CHLORIDE 0.9% 250 ML IV SCH (12:00)
[2019-08-24] MEDS ORDERED: INSULIN ASPART 100 UNITS/ML 3 ML PEN SC ONE (12:15)
[2019-08-24] MEDS ORDERED: INSULIN GLARGINE SOLOSTAR 100 UNITS/ML 3 ML PEN SQ ONE ×2 (12:30→21:00)
--- NOTE | 2019-08-24 16:50 | Pharmacy Report ---
Pharmacy Abx Dose Short Note - Date of Service August 24, 2019 - Assessment & Plan Assessment * 49 year old F receiving vancomycin and Zosyn for treatment of perineal cellulitis and r/o Charito's gangrene * eCrCL > 120 mL/min Plan * Vancomycin 1500 mg IV q8h * Trough 08/25 @ 1130 Pharmacy will continue to follow and will adjust dose/frequency as necessary. Thank you.
[2019-08-24] MEDS: VANCOMYCIN HCL 1,500 MG in SODIUM CHLORIDE 0.9% 500 ML IV SCH (19:50)
[2019-08-24] MEDS ORDERED: INSULIN GLARGINE SOLOSTAR 100 UNITS/ML 3 ML PEN SQ SCH (21:00)
--- NOTE | 2019-08-24 21:04 | Hospitalist Progress Note ---
Date of Service August 24, 2019 Assessment & Plan (1) Cellulitis of labia: Mindi Gaming is a pleasant 49 y/o female with past history of uncontrolled DM, HTN, who was admitted for labia majora and perineum cellulitis. CT Pelvis w/o con - showing subcutaneous edema of right perineal tissues extending into the right labia majora and medial aspect of the right inner thigh suggesting cellulitis. ED contacted COMPLIANCE ENGINEER who reviewed and thought that there was no abscess to drain and this could be treated with antibiotics. Concern that it was reported that there was a 6.1cm sinus tract within the right perineum. Report does note that there is only a tiny foci of adjacent loculated fluid suggestive of developing abscess and no drainable fluid collection. Since there was mention of a sinus tract, General surgery was contacted and noted that there didn't appear to be any fluid to drain as well. - Patient was started on Zosyn here in ED, will continue Zosyn and add Vancomycin for more specific gram+ and MRSA coverage. -Awaiting input from surgery - Morphine 2mg q4hr PNR for pain. - Currently no fevers, or systemic symptoms, no elevated WBC. - Wound cultures taken in ED - ESR >90; CRP 2.44 -Area continue to be very tender. will continue with IV antibiotics. Code: Full Code FENGI: DM2 diet, NPO at midnight, NSS @ 125mL, continue with Omeprazole 20mg PO BID DVT ppx: SCDs, will avoid chemical with Hgb of 8.6 while worked up. Dispo: Med surg (2) Anemia: - Unknown what prior baseline is, but notes was told anemic when tried to donate blood long time ago - In ED, Hgb is 8.6, MCV is low along with MCHC which would be consistent with iron deficiency anemia. - will continue to monitor hemoglobin. (3) Diabetes type 2, uncontrolled: - Prior A1C 3-weeks ago was 12.2%; 7-months ago was 10.8%; 10-months ago was 12%. - Continue with Basaglar 24 units SubQ qHS - Novolog sliding scale - continue with home Metformin 100mg PO BID - She notes she no longer takes Glipizide 10mg and inplace started Trulicity on last Saturday, would be due for this upcoming Saturday with order placed. - continue with home Gabapentin 300mg BID for her neuropathy - c/w Atorvastatin 10mg PO qHS (4) HTN (hypertension): -Continue with home Losartan 50mg PO BID - Monitor vitals (5) Tobacco abuse: - Patient declining need for Nicotine TD patch - Smoking cessation provided, notes she only smokes at work - Diminished lung sounds on exam concerning for lung damage from smoking Subjective 49 yo female reports no improvement. Review of Systems Review of Systems: All systems reviewed & are unremarkable except as noted in HPI & below Physical Exam Physical Exam: Constitutional: WD/WN, vitals as above cooperative and comfortable Eyes: PERRL, conjunctivae normal, anicteric sclerae ENMT: external ear and nose normal, oropharynx normal Neck: normal visual inspection and trachea midline Respiratory: normal respiratory effort; no respiratory distress Auscultation: no crackles, no rhonchi and no wheezes diminished breath sounds diffusely posteriorly Cardiovascular: Rate/Rhythm: regular rate and regular rhythm Extremities: no edema Gastrointestinal (Abdomen): Inspection/Auscultation: normal bowel sounds Percussion/Palpation: abdomen nontender, no guarding and abdomen not rigid Musculoskeletal: Head/Neck/Chest: normocephalic and head atraumatic Skin: swelling of perineum area and small hole noted on right gluteal region near gluteal cleft. Area is moderately tender with open area without active drainage at this time. Right inguinal LAD. Neurologic: moves all extremities Psychiatric: A+Ox3, euthymic affect Results & Data Vital Signs (Past 12 Hours) Vital Signs Temp Pulse Resp BP Pulse Ox 08/24/19 15:40 36.5 C 94 H 18 133/81 90 PG Care Time/CCT Total # of Minutes Spent Total Time Spent with Patient: Total time spent is greater than 50% in coordination of care (as documented) at patient's floor/unit and/or counseling patient: Coding Level of Care Code 39026 Subseq Hosp Care Lvl 3 Diagnoses Cellulitis of labia N76.2 Anemia D64.9 Anemia type: unspecified type Diabetes type 2, uncontrolled E11.65 HTN (hypertension) I10 Tobacco abuse Z72.0 Time Spent (min) 35 Comment chart review. first encounter with patient. (1) Anemia Anemia type: unspecified type Qualified Code(s): D64.9 - Anemia, unspecified
[2019-08-24] MEDS: ATORVASTATIN 10 MG TAB PO SCH (21:38)
[2019-08-25] MEDS: PIPERACILLIN/TAZOBACTAM 4.5 GM in DEXTROSE 5% 100 ML IV SCH ×3 (00:12→16:10)
[2019-08-25] MEDS: INSULIN ASPART 100 UNITS/ML 3 ML PEN SC SCH ×6 (00:13→21:19)
[2019-08-25] MEDS: ONDANSETRON INJ 2 MG/ML 2 ML VIAL IV PRN ×2 (00:25→17:07)
[2019-08-25] MEDS: ACETAMINOPHEN 325 MG TAB PO PRN ×4 (00:26→15:45)
[2019-08-25] MEDS: VANCOMYCIN HCL 1,500 MG in SODIUM CHLORIDE 0.9% 500 ML IV SCH ×2 (04:27→12:51)
[2019-08-25 07:16] LABS: Hematocrit (blood only) 26.6 % (37-47); Hemoglobin 7.4 g/dL (12.0-16.0); Mean Corpuscular Hemoglobin 19.6 pg (25-34); Mean Corpuscular Hgb Conc 27.8 g/dL (32-36); Mean Corpuscular Volume 70.6 fL (80-100); Mean Platelet Volume 8.7 fL (7.4-10.4); Platelet Count 302 K/uL (130-400); Red Blood Count 3.77 M/uL (4.2-5.4); White Blood Count 5.37 K/uL (4.8-10.8)
[2019-08-25 07:36] LABS: Basophils # (auto) 0.02 K/uL (0-0.2); Basophils % (auto) 0.4 %; Eosinophils # (auto) 0.33 K/uL (0-0.5); Eosinophils % (auto) 6.1 %; Hypochromasia Present; Immature Granulocytes # (auto) 0.01 K/uL (0.00-0.02); Immature Granulocytes % (auto) 0.2 %; Lymphocytes # (auto) 1.73 K/uL (1.2-3.4); Lymphocytes % (auto) 32.2 %; Microcytosis Present; Monocytes # (auto) 0.44 K/uL (0.11-0.59); Monocytes % (auto) 8.2 %; Neutrophils # (auto) 2.84 K/uL (1.4-6.5); Neutrophils % (auto) 52.9 %
[2019-08-25 07:42] LABS: Albumin Level 2.3 gm/dl (3.4-5.0); BUN Creatinine Ratio 12.2 (10-20); Creatinine Clr Calc Pharmacy 125.8 ml/min; Est GFR (African American) 119.9; Est GFR (Non-African American) 103.4
[2019-08-25 07:45] LABS: Albumin Globulin Ratio 0.6 (0.9-2); Bilirubin,Total 0.2 mg/dl (0.2-1); Total Protein 6.3 gm/dl (6.4-8.2)
[2019-08-25 07:50] LABS: Estimated Average Glucose 280 mg/dl; Hemoglobin A1C 11.4 % (4.5-5.6)
[2019-08-25] MEDS: PANTOprazole 40 MG TAB PO SCH ×2 (08:37→20:19)
[2019-08-25] MEDS: LOSARTAN POTASSIUM 50 MG TAB PO SCH ×2 (08:37→20:18)
[2019-08-25] MEDS: GABAPENTIN 300 MG CAP PO SCH ×2 (08:37→20:20)
[2019-08-25] MEDS ORDERED: INSULIN GLARGINE SOLOSTAR 100 UNITS/ML 3 ML PEN SQ ONE (09:00)
--- NOTE | 2019-08-25 09:31 | Pharmacy Report ---
Pharmacy Glycemic Short Note 2 - Date of Service August 25, 2019 - Glycemic Short BSG Results (Last 24 hours): 08/24/19 08/24/19 08/24/19 11:16 17:23 21:11 Glucose POC Glucose 257 H 239 H 266 H 08/25/19 08/25/19 08/25/19 00:11 04:34 06:31 Glucose 196 H POC Glucose 214 H 211 H 08/25/19 08:17 Glucose POC Glucose 208 H OUTPATIENT ANTIDIABETIC REGIMEN: * Basaglar 24 units SC HS * Novolog 8 units SC TID * Metformin 1 g po BID * Trulicity 0.75 mg SC qWedn (recent start last Saturday per H&P) * Note: recently discontinued glipizide per H&P * A1c = 12.2% three weeks ago per H&P Risk Factors for Insulin Resistance: * Infection: perineal/labial cellulitis, r/o Charito's gangrene * Diet: T2DM ASSESSMENT: * 49 yo F with poorly controlled T2DM admitted with perineal/labial cellulitis with possible developing abscess * No planned surgical intervention at this time. Pt remains on vancomycin and zosyn. * Pt received 86 units of insulin yesterday (45 units of basal and 41 units of bolus) * Fasting BSG of 208 mg/dL is above goal but improved compared to 08/24. Continue to titrate Lantus dose. * Post prandial BSGs are all elevated therefore Novolog will be tightened. PLAN FOR INPATIENT GLYCEMIC CONTROL: * Holding outpatient oral diabetes medications * Basal insulin - increase * Lantus SC per scale BID: * 15 units for BSG less than 120 mg/dL * 25 units for BSG 120-160 mg/dL * 30 units for BSG greater than 160 mg/dL * Bolus insulin - tighten * NovoLog checks to ACHS * Goal Range: Low 120 mg/dL - High 150 mg/dL * Correction Factor: 15 mg/dL/unit * Nutritional / Prandial insulin per carb ratio of 1 unit per 5 grams CHO consumed * Add overnight checks at 00 and 04 * Please note that the plan above was derived based on current level of insulin resistance and hospital stress. These recommendations are appropriate for inpatient admission only. Plan of care upon discharge will need to be reassessed to avoid potential outpatient hypo/hyperglycemia. PLAN FOR DISCHARGE: * A1c 12.2% * Patient would benefit from increasing outpatient insulin doses. It is difficult to determine exact dosing at this time as we are continuing to titrate Lantus dose. I suspect he will require around 40-50 units of Lantus per day.
[2019-08-25] MEDS: INSULIN GLARGINE SOLOSTAR 100 UNITS/ML 3 ML PEN SQ SCH ×2 (09:37→21:18)
[2019-08-25] MEDS: SODIUM CHLORIDE 0.9% 1000ML 1,000 ML IV SCH ×2 (10:42→19:07)
[2019-08-25] MEDS ORDERED: VANCOMYCIN TROUGH ONE ×2 (11:30)
--- NOTE | 2019-08-25 11:44 | Surgery Progress Note ---
Date of Service August 25, 2019 Assessment & Plan (1) Cellulitis of labia: Patient with no overnight complaints; no increased pain or swelling WBC within normal limits at 5.3 and patient is afebrile No indication for surgical intervention at this time; no drainable abscess Continue course of abx, warm compresses, and warm tub soaks Recommend outpatient follow up with Dermatology for questionable hidradenitis Please call with any questions/concerns Subjective Patient says she is feeling well. Has no complaints from overnight. Physical Exam Physical Exam: awake/alert Skin: + induration of lower right labia and perineal area Results & Data Vital Signs (Past 12 Hours) Vital Signs Temp Pulse Resp BP Pulse Ox Pulse Ox 08/25/19 07:47 36.5 C 79 16 126/75 90 08/25/19 00:20 92 PG Care Time/CCT Total # of Minutes Spent Total Time Spent with Patient: Total time spent is greater than 50% in coordination of care (as documented) at patient's floor/unit and/or counseling patient: Coding Level of Care Code 80493 Subseq Hosp Care Lvl 1 Diagnoses Cellulitis of labia N76.2
--- NOTE | 2019-08-25 13:46 | Pharmacy Report ---
Pharmacy Abx Dose Short Note - Date of Service August 25, 2019 - Assessment & Plan Assessment 49 year old F ordered vancomycin and zosyn for treatment of perineal cellulitis with possible developing abscess, r/o Fourniers gangrene. * preliminary groin culture growing staph species and group B beta strep * Day # 2 of antimicrobial therapy Plan Continue vancomycin and zosyn pending susceptibility data Vancomycin * Trough level of 16.1 mcg/mL is therapeutic * I anticipate drug accumulation due to BMI ~40 therefore I will empirically decrease vancomycin dosage and repeat trough level * Change to 1250 mg IV every 8 hours * Trough level ordered for 08/26 @ 1130 (will place order on hold pending level evaluation) Zosyn * continue 4.5 gram IV q8h via extended infusion Pharmacy will continue to follow and will adjust dose/frequency as necessary. Thank you.
[2019-08-25] MEDS: MoRPHine SULFATE 2 MG/ML CARP IV PRN (17:07)
[2019-08-25] MEDS: ATORVASTATIN 10 MG TAB PO SCH (20:20)
[2019-08-25] MEDS: VANCOMYCIN HCL 1,250 MG in SODIUM CHLORIDE 0.9% 250 ML IV SCH (20:24)
--- NOTE | 2019-08-25 22:26 | Hospitalist Progress Note ---
Date of Service August 25, 2019 Assessment & Plan (1) Cellulitis of labia: Mindi Gaming is a pleasant 49 y/o female with past history of uncontrolled DM, HTN, who was admitted for labia majora and perineum cellulitis. CT Pelvis w/o con - showing subcutaneous edema of right perineal tissues extending into the right labia majora and medial aspect of the right inner thigh suggesting cellulitis. ED contacted YARN MERCERIZER OPERATOR HELPER who reviewed and thought that there was no abscess to drain and this could be treated with antibiotics. Concern that it was reported that there was a 6.1cm sinus tract within the right perineum. Report does note that there is only a tiny foci of adjacent loculated fluid suggestive of developing abscess and no drainable fluid collection. Since there was mention of a sinus tract, General surgery was contacted and noted that there didn't appear to be any fluid to drain as well. - Patient was started on Zosyn here in ED, will continue Zosyn and add Vancomycin for more specific gram+ and MRSA coverage. -Awaiting input from surgery - Morphine 2mg q4hr PNR for pain. - Currently no fevers, or systemic symptoms, no elevated WBC. - Wound cultures taken in ED - ESR >90; CRP 2.44 -Area continue to be very tender but is improved. will continue with IV antibiotics. No surgery indicated at this time. will place warm compresses to help with drainage. Code: Full Code continue with Omeprazole 20mg PO BID DVT ppx: SCDs, will avoid chemical with Hgb of 8.6 while worked up. Dispo: Med surg (2) Anemia: - Unknown what prior baseline is, but notes was told anemic when tried to donate blood long time ago - In ED, Hgb is 8.6, MCV is low along with MCHC which would be consistent with iron deficiency anemia. - will continue to monitor hemoglobin. (3) Diabetes type 2, uncontrolled: - Prior A1C 3-weeks ago was 12.2%; 7-months ago was 10.8%; 10-months ago was 12%. - Continue with Basaglar 24 units SubQ qHS - Novolog sliding scale - continue with home Metformin 100mg PO BID - She notes she no longer takes Glipizide 10mg and inplace started Trulicity on last Saturday, would be due for this upcoming Saturday with order placed. - continue with home Gabapentin 300mg BID for her neuropathy - c/w Atorvastatin 10mg PO qHS (4) HTN (hypertension): -Continue with home Losartan 50mg PO BID - Monitor vitals (5) Tobacco abuse: - Patient declining need for Nicotine TD patch - Smoking cessation provided, notes she only smokes at work - Diminished lung sounds on exam concerning for lung damage from smoking Subjective 49 yo female reports her pain has improved. SHE STATES SHE IS 60% better. Review of Systems Review of Systems: All systems reviewed & are unremarkable except as noted in HPI & below Physical Exam Physical Exam: Constitutional: WD/WN, vitals as above cooperative and comfortable Eyes: PERRL, conjunctivae normal, anicteric sclerae ENMT: external ear and nose normal, oropharynx normal Neck: normal visual inspection and trachea midline Respiratory: normal respiratory effort; no respiratory distress Auscultation: no crackles, no rhonchi and no wheezes diminished breath sounds diffusely posteriorly Cardiovascular: Rate/Rhythm: regular rate and regular rhythm Extremities: no edema Gastrointestinal (Abdomen): Inspection/Auscultation: normal bowel sounds Percussion/Palpation: abdomen nontender, no guarding and abdomen not rigid Musculoskeletal: Head/Neck/Chest: normocephalic and head atraumatic Skin: decreased swelling of perineum area and small hole noted on right gluteal region near gluteal cleft. Area has decreased tender with open area without active drainage at this time. Right inguinal LAD. Neurologic: moves all extremities Psychiatric: A+Ox3, euthymic affect Results & Data Vital Signs (Past 12 Hours) Vital Signs Temp Pulse Resp BP Pulse Ox 08/25/19 15:26 36.6 C 82 16 134/82 94 PG Care Time/CCT Total # of Minutes Spent Total Time Spent with Patient: Total time spent is greater than 50% in coordination of care (as documented) at patient's floor/unit and/or counseling patient: Coding Level of Care Code 82807 Subseq Hosp Care Lvl 2 Diagnoses Cellulitis of labia N76.2 Anemia D64.9 Anemia type: unspecified type Diabetes type 2, uncontrolled E11.65 HTN (hypertension) I10 Tobacco abuse Z72.0 Time Spent (min) 25 (1) Anemia Anemia type: unspecified type Qualified Code(s): D64.9 - Anemia, unspecified
[2019-08-26] MEDS: PIPERACILLIN/TAZOBACTAM 4.5 GM in DEXTROSE 5% 100 ML IV SCH ×2 (00:19→08:33)
[2019-08-26] MEDS: SODIUM CHLORIDE 0.9% 1000ML 1,000 ML IV SCH ×2 (00:25→08:33)
[2019-08-26] MEDS: INSULIN ASPART 100 UNITS/ML 3 ML PEN SC SCH ×4 (00:33→13:28)
[2019-08-26] MEDS: ACETAMINOPHEN 325 MG TAB PO PRN ×2 (04:20→08:33)
[2019-08-26] MEDS: VANCOMYCIN HCL 1,250 MG in SODIUM CHLORIDE 0.9% 250 ML IV SCH (04:20)
[2019-08-26 07:26] VITALS: TEMP 97.9; O2SAT 90
[2019-08-26] MEDS: ONDANSETRON INJ 2 MG/ML 2 ML VIAL IV PRN (07:27)
[2019-08-26 07:50] LABS: Hematocrit (blood only) 26.4 % (37-47); Hemoglobin 7.4 g/dL (12.0-16.0); Mean Corpuscular Hemoglobin 19.9 pg (25-34); Mean Corpuscular Volume 71.2 fL (80-100); Mean Platelet Volume 8.6 fL (7.4-10.4); Platelet Count 299 K/uL (130-400); RDW Coefficient of Variation 18.8 % (11.5-14.5); RDW Standard Deviation 48.5 fL (36.4-46.3); Red Blood Count 3.71 M/uL (4.2-5.4); White Blood Count 5.89 K/uL (4.8-10.8)
[2019-08-26 08:14] LABS: Creatinine Clr Calc Pharmacy 140.2 ml/min; Est GFR (African American) 124.2; Est GFR (Non-African American) 107.2
[2019-08-26 08:22] LABS: Basophils # (auto) 0.01 K/uL (0-0.2); Basophils % (auto) 0.2 %; Eosinophils # (auto) 0.38 K/uL (0-0.5); Eosinophils % (auto) 6.5 %; Hypochromasia Present; Immature Granulocytes # (auto) 0.01 K/uL (0.00-0.02); Immature Granulocytes % (auto) 0.2 %; Lymphocytes # (auto) 1.75 K/uL (1.2-3.4); Lymphocytes % (auto) 29.7 %; Monocytes # (auto) 0.41 K/uL (0.11-0.59); Neutrophils # (auto) 3.33 K/uL (1.4-6.5); Neutrophils % (auto) 56.4 %
[2019-08-26] MEDS: LOSARTAN POTASSIUM 50 MG TAB PO SCH (08:36)
[2019-08-26] MEDS: PANTOprazole 40 MG TAB PO SCH (08:37)
[2019-08-26] MEDS ORDERED: NON-FORMULARY MEDICATION (Dulaglutide [Trulicity] 0.75 MG) SQ SCH (09:00)
--- NOTE | 2019-08-26 09:08 | Surgery Progress Note ---
Date of Service August 26, 2019 Assessment & Plan (1) Cellulitis of labia: WBC within normal limits at 5.8 and patient is afebrile No indication for surgical intervention at this time; no drainable abscess Okay from our standpoint to transition to a course of oral abx to complete a full course Continue conservative management at home with warm compresses and warm tub soaks Recommend outpatient follow up with Dermatology for questionable hidradenitis Okay for discharge from our standpoint. Please call with any questions/concerns Subjective Patient is feeling okay this AM. No major complaints from overnight. Had some questions regarding if the swelling will go down overtime. Physical Exam Physical Exam: awake/alert Constitutional: well developed and well nourished; no acute distress Skin: induration and mild erythema of inferior right labia majora extending towards buttock, ~1cm opening noted Results & Data Vital Signs (Past 12 Hours) Vital Signs Temp Pulse Resp BP Pulse Ox 08/26/19 07:25 36.6 C 80 16 145/91 H 90 08/25/19 23:40 36.8 C 82 18 149/94 H 95 PG Care Time/CCT Total # of Minutes Spent Total Time Spent with Patient: Total time spent is greater than 50% in coordination of care (as documented) at patient's floor/unit and/or counseling patient: Coding Level of Care Code 70382 Subseq Hosp Care Lvl 1 Diagnoses Cellulitis of labia N76.2
[2019-08-26] MEDS: INSULIN GLARGINE SOLOSTAR 100 UNITS/ML 3 ML PEN SQ SCH (09:20)
[2019-08-26] MEDS: GABAPENTIN 300 MG CAP PO SCH (10:36)
[2019-08-26] MEDS ORDERED: VANCOMYCIN TROUGH ONE (11:30)
[2019-08-26 13:25] VITALS: BP 126/75; PULSE 94
[2019-08-26] MEDS ORDERED: AMPICILLIN/SULBACTAM SOD 3,000 MG in 0.9 % SODIUM CHLORIDE 100 ML IV SCH (16:00)
== END 2019-08-26 13:57 | disposition home or self-care (01) | DRG 759 ==
LOC: 3W 17:28 → ED 17:28 → SUATTDRO 21:43 → 3W 22:09